=== PATIENT | male | born 1970 | race Caucasian/White ===

== ENCOUNTER 2023-03-10 04:33 | Emergency (ER) | payer OTHER ==
[2023-03-10] MEDS ORDERED: Aspirin 81 MG Tab.Chew ONE (04:41)
[2023-03-10] MEDS ORDERED: Nitroglycerin 0.4 MG Tab.SL ONE (04:42)
[2023-03-10] MEDS: Nitroglycerin 0.4 MG Tab.SL SL PRN ×3 (04:42→05:21)
[2023-03-10] MEDS ORDERED: Sodium Chloride 0.9% 10 ML Syringe FLUSH PRN (04:45)
[2023-03-10] MEDS ORDERED: Aspirin 81 MG Tab.Chew PO ONE (04:49)
[2023-03-10] MEDS ORDERED: Heparin Sodium 5,000 Units/ML Vial IVPUSH ONE (04:57)
[2023-03-10] MEDS ORDERED: Heparin Sodium/D5W 25,000 UNITS/500 ML BAG IV SCH (05:00)
[2023-03-10] MEDS ORDERED: Heparin Sodium/D5W 500 ML ONE (05:03)
[2023-03-10] MEDS ORDERED: Naloxone 0.4 MG/ML SDV IVPUSH PRN ×2 (05:03→05:26)
[2023-03-10] MEDS ORDERED: fentaNYL 100 MCG/2 ML SDV IVPUSH ONE ×3 (05:03→05:34)
[2023-03-10] MEDS ORDERED: Clopidogrel 75 MG Tab PO ONE (05:04)
[2023-03-10 05:17] LABS: MAGNESIUM 1.7 mg/dL (1.8-2.4)
[2023-03-10 05:25] LABS: BASOPHILS ABSOLUTE AUTO 0.1 K/mm3 (0.0-0.2); BASOPHILS PERCENT AUTO 0.6 % (0.0-1.0); EOSINOPHILS ABSOLUTE AUTO 0.4 K/mm3 (0.0-0.4); EOSINOPHILS PERCENT AUTO 3.7 % (0.0-6.0); HEMATOCRIT 51.7 % (42.0-52.0); HEMOGLOBIN 17.8 gm/dl (14.0-18.0); IMMATURE GRAN ABSOLUTE AUTO 0.03 K/mm3 (0.00-0.05); IMMATURE GRAN PERCENT AUTO 0.3 % (0.0-0.4); LYMPHOCYTES ABSOLUTE AUTO 4.3 K/mm3 (1.0-4.8); LYMPHOCYTES PERCENT AUTO 40.5 % (24.0-44.0); MEAN CORPUSCULAR HEMOGLOBIN 29.7 pg (28.0-32.0); MEAN CORPUSCULAR HGB CONC 34.4 g/dl (32.0-36.0); MEAN CORPUSCULAR VOLUME 86.2 fl (83.0-99.0); MONOCYTES ABSOLUTE AUTO 1.2 K/mm3 (0.0-0.8); MONOCYTES PERCENT AUTO 11.1 % (0.0-8.0); NEUTROPHILS ABSOLUTE AUTO 4.7 K/mm3 (1.8-7.7); NEUTROPHILS PERCENT AUTO 43.8 % (41.0-71.0); PLATELET COUNT,PLT 212 K/mm3 (150-400); WHITE BLOOD CELL COUNT,WBC 10.64 K/mm3 (3.9-11.3)
[2023-03-10] MEDS ORDERED: Nitroglycerin/D5W 25 MG/250 ML BOTTLE ONE (05:28)
[2023-03-10 05:30] LABS: INR 0.94; PROTHROMBIN TIME 10.1 SECONDS (9.7-12.0)
[2023-03-10] MEDS ORDERED: Nitroglycerin/D5W 25 MG/250 ML BOTTLE IV SCH (05:30)
[2023-03-10 05:32] LABS: PTT,PARTIAL THROMBOPLSTIN TIME 26.8 SECONDS (21.7-31.4)
[2023-03-10] MEDS ORDERED: Tenecteplase 50 MG Kit IV ONE ×2 (05:45→05:51)
== END 2023-03-10 06:05 | disposition critical access hospital (66) ==
LOC: JD.ED 04:33
DX: I21.19 ST elevation (STEMI) myocardial infarction involving other coronary artery of inferior wall (principal); Z88.5 Allergy status to narcotic agent; Z79.899 Other long term (current) drug therapy
CPT/HCPCS: 36415; 71045; 83735; 84484; 85025; 85610; 85730; 92977; 93005; 96365; 96375; 99285; A9270; J1644; J2305; J3010; J3101; J3490; 93010